=== PATIENT | female | born 1970 | race Asian ===

== ENCOUNTER 2018-11-28 01:41 | Emergency (ER) | payer SELFPAY ==
[~2018-11-28] VITALS: Ht 160 cm; Wt 51.7 kg
[2018-11-28 02:08] VITALS: BP_SYST 153
[2018-11-28] MEDS ORDERED: LIDOCAINE/EPI 1% 1:100000 20 ML VIAL INJ ONE (02:48)
[2018-11-28] MEDS ORDERED: DIPH-TET-PERTUS Vaccine 0.5 ML VIAL (ADACEL) IM ONE (03:00)
[2018-11-28] MEDS ORDERED: BACITRACIN 1 GM OINT TP ONE (03:00)
[2018-11-28 03:38] VITALS: BP_SYST 153
== END 2018-11-28 03:38 | disposition home or self-care (01) ==
LOC: SED 01:41
DX: S81.012A Laceration without foreign body, left knee, initial encounter (principal); W10.9XXA Fall (on) (from) unspecified stairs and steps, initial encounter; Y93.01 Activity, walking, marching and hiking; Y92.89 Other specified places as the place of occurrence of the external cause; Y99.8 Other external cause status
CPT/HCPCS: 73560-TC; 90715; 99283

== ENCOUNTER 2018-11-29 14:17 | Emergency (ER) | payer SELFPAY ==
[~2018-11-29] VITALS: Ht 160 cm; Wt 59.0 kg
[2018-11-29 14:24] VITALS: BP_SYST 150
[2018-11-29] MEDS ORDERED: BACITRACIN 1 GM OINT TP ONE ×2 (14:45→14:49)
[2018-11-29] MEDS ORDERED: CEPHALEXIN 500 MG CAPSULE PO ONE (14:45)
[2018-11-29 14:54] VITALS: BP_SYST 150
== END 2018-11-29 14:51 | disposition home or self-care (01) ==
LOC: SED 14:17
DX: S81.012D Laceration without foreign body, left knee, subsequent encounter (principal); L03.116 Cellulitis of left lower limb; R03.0 Elevated blood-pressure reading, without diagnosis of hypertension; W22.8XXD Striking against or struck by other objects, subsequent encounter
CPT/HCPCS: 99283